=== PATIENT | male | born 1970 | race Caucasian/White ===

== ENCOUNTER 2019-08-30 14:22 | Inpatient (IN) | payer OTHER ==
[~2019-08-30] VITALS: Ht 188 cm; Wt 81.1 kg
--- NOTE | 2019-08-30 14:59 | NUR ---
INSPECTOR CHIEF: PT AMBULATORY WITH STEADY GAIT TO ROOM FROM LOBBY.
[2019-08-30 15:09] LABS: BASOPHILS # (AUTO) 0.08 x10^3/uL (0-0.1); BASOPHILS % (AUTO) 1 % (0-1); EOSINOPHILS # (AUTO) 0.27 x10^3/uL (0-0.4); EOSINOPHILS % (AUTO) 4 % (1-7); LYMPHOCYTES # (AUTO) 2.09 x10^3/uL (1-3.4); LYMPHOCYTES % (AUTO) 27 % (22-44); MD NO; MEAN CORPUSCULAR HGB CONC 33.9 g/dL (33.2-36.2); MEAN CORPUSCULAR VOLUME 88.5 fL (81-97); MONOCYTES # (AUTO) 0.41 x10^3/uL (0.2-0.8); MONOCYTES % (AUTO) 5 % (2-9); NEUTROPHILS # (AUTO) 4.77 x10^3/uL (1.8-6.8); NEUTROPHILS % (AUTO) 63 % (42-75); PLATELET COUNT 299 x10^3/uL (130-400); RED BLOOD COUNT 4.97 x10^6/uL (4.38-5.82); RED CELL DISTRIBUTION WIDTH 12.1 % (9.4-14.8)
[2019-08-30 15:18] LABS: ALBUMIN 3.6 g/dL (3.4-5.0); ANION GAP 7 mmol/L (5-15); CALCIUM 8.4 mg/dL (8.5-10.1); CHLORIDE 108 mmol/L (98-107)
--- NOTE | 2019-08-30 15:57 | NUR ---
3 ATTEMPTS TO CATH PT WITH SMALLER AND SMALLER CATHS EACH TIME WITHOUT SUCCESS. ERP AWARE AND UROLOGIST HAS BEEN CALLED.
[2019-08-30] MEDS ORDERED: SODIUM CHLORIDE FLUSH 10ML SYR IVF ONE (16:00)
[2019-08-30] MEDS ORDERED: ONDANSETRON 2MG/ML, 2ML IVPush ONE (16:00)
[2019-08-30] MEDS ORDERED: MORPHINE SULFATE 4 MG/ML, 1ML IVPush PRN (16:00)
[2019-08-30] MEDS ORDERED: ONDANSETRON 2MG/ML, 2ML ONE (16:08)
[2019-08-30] MEDS ORDERED: CEFTRIAXONE 250 MG ONE (16:08)
[2019-08-30] MEDS ORDERED: AZITHROMYCIN 500 MG TABLET ONE (16:08)
[2019-08-30] MEDS ORDERED: MORPHINE SULFATE 4 MG/ML, 1ML ONE (16:09)
--- NOTE | 2019-08-30 16:20 | NUR ---
UROLOGY AT BEDSIDE TO ASSESS PT
[2019-08-30] MEDS ORDERED: AZITHROMYCIN 500 MG TABLET PO ONE (16:30)
[2019-08-30] MEDS ORDERED: CEFTRIAXONE 250 MG IM ONE (16:30)
--- NOTE | 2019-08-30 16:35 | NUR ---
PT TO IR AT THIS TIME
--- NOTE | 2019-08-30 16:36 | NUR ---
ZITHROMAX TO BE GIVEN UPON PT RETURN FROM IR.
[2019-08-30] MEDS ORDERED: NALOXONE 1 MG/ML, 2ML ONE (16:38)
[2019-08-30] MEDS ORDERED: MIDAZOLAM 1 MG/ML, 5ML ONE (16:38)
[2019-08-30] MEDS ORDERED: FLUMAZENIL 0.1 MG/1 ML, 5ML ONE (16:38)
[2019-08-30] MEDS ORDERED: FENTANYL PF 100 MCG/2ML ONE ×2 (16:38)
[2019-08-30] MEDS ORDERED: VISIPAQUE 270 MG/ML, 50ML BOTTLE ONE (17:00)
--- NOTE | 2019-08-30 17:14 | NUR ---
REPORT FROM IR RN. PT TO RETURN TO ROOM SHORTLY. NO FOB FOUND. SUPRAPUBIC CATH PLACED.
--- NOTE | 2019-08-30 17:38 | NUR ---
PT BACK FROM IR, STILL RECOVERING FROM SEDATION, ABX TO BE GIVEN WHEN PT ABLE TO TAKE PO SAFELY
--- NOTE | 2019-08-30 18:07 | NUR ---
PT GIVEN ABX. PT IS A/O AND ABLE TO FOLLOW COMMANDS. PT REQUESTING "ALEXANDRA AND COKE AND FOOTBALL." PT SITTING UP CONVERSING WITH MOTHER CURRENTLY. VS CALL LIGHT IN REACH
[2019-08-30 18:25] LABS: MICROSCOPIC AUTO
[2019-08-30 18:27] LABS: CULTURE INDICATED? YES
[2019-08-30] MEDS ORDERED: morphine SULFATE 10 MG/ML, 1ML IVPush PRN (19:00)
[2019-08-30] MEDS ORDERED: ONDANSETRON 2MG/ML, 2ML IVPush PRN (19:00)
[2019-08-30] MEDS ORDERED: ACETAMINOPHEN 325 MG TABLET PO PRN (19:00)
[2019-08-30] MEDS ORDERED: HYDROcodone/APAP 5/325 TABLET ONE (19:10)
[2019-08-30] MEDS: HYDROcodone/APAP 5/325 TABLET PO PRN (19:13)
--- NOTE | 2019-08-30 19:13 | NUR ---
PT REPORTING 7/10 PAIN. PT MEDICATED PER MAR
--- NOTE | 2019-08-30 19:25 | NUR ---
report called to floor rn all questions addressed
[2019-08-30 21:10] VITALS: BP 133/82
[2019-08-31 01:09] VITALS: BP 119/66
[2019-08-31] MEDS: HYDROcodone/APAP 5/325 TABLET PO PRN ×3 (01:17→21:17)
[2019-08-31 05:30] LABS: BASOPHILS # (AUTO) 0.05 x10^3/uL (0-0.1); BASOPHILS % (AUTO) 0 % (0-1); EOSINOPHILS # (AUTO) 0.21 x10^3/uL (0-0.4); EOSINOPHILS % (AUTO) 1 % (1-7); LYMPHOCYTES # (AUTO) 1.52 x10^3/uL (1-3.4); LYMPHOCYTES % (AUTO) 10 % (22-44); MD NO; MEAN CORPUSCULAR HEMOGLOBIN 30.1 pg (27.5-34.5); MEAN CORPUSCULAR HGB CONC 33.4 g/dL (33.2-36.2); MEAN CORPUSCULAR VOLUME 90.2 fL (81-97); MEAN PLATELET VOLUME 7.5 fL (7.4-10.4); MONOCYTES # (AUTO) 0.91 x10^3/uL (0.2-0.8); MONOCYTES % (AUTO) 6 % (2-9); NEUTROPHILS # (AUTO) 12.42 x10^3/uL (1.8-6.8); NEUTROPHILS % (AUTO) 82 % (42-75); PLATELET COUNT 273 x10^3/uL (130-400); RED BLOOD COUNT 4.99 x10^6/uL (4.38-5.82); RED CELL DISTRIBUTION WIDTH 12.6 % (9.4-14.8)
[2019-08-31 05:37] LABS: ANION GAP 5 mmol/L (5-15); CALCIUM 8.7 mg/dL (8.5-10.1); CHLORIDE 105 mmol/L (98-107); CREATININE 0.87 mg/dL (0.7-1.3)
[2019-08-31 07:16] VITALS: BP 107/61
[2019-08-31] MEDS: CEFTRIAXONE PMX 1GM/50ML 50 ML IV SCH (10:04)
[2019-08-31 13:08] VITALS: BP 114/66
[2019-08-31] MEDS ORDERED: OMNIPAQUE 350 MG/ML, 100ML BOTTLE ONE (15:32)
[2019-08-31 19:24] VITALS: BP 126/71
[2019-09-01 02:14] VITALS: BP 104/63
[2019-09-01 07:49] VITALS: BP 107/68
[2019-09-01] MEDS: CEFTRIAXONE PMX 1GM/50ML 50 ML IV SCH (08:22)
[2019-09-01 11:08] LABS: MEAN CORPUSCULAR HEMOGLOBIN 30.3 pg (27.5-34.5); MEAN CORPUSCULAR HGB CONC 33.9 g/dL (33.2-36.2); MEAN CORPUSCULAR VOLUME 89.5 fL (81-97); MEAN PLATELET VOLUME 6.9 fL (7.4-10.4); PLATELET COUNT 270 x10^3/uL (130-400); RED BLOOD COUNT 4.85 x10^6/uL (4.38-5.82); RED CELL DISTRIBUTION WIDTH 12.6 % (9.4-14.8)
[2019-09-01 11:12] LABS: CHLORIDE 105 mmol/L (98-107)
[2019-09-01 11:20] LABS: ALANINE AMINOTRANSFERASE 21 U/L (12-78); ALBUMIN 3.2 g/dL (3.4-5.0); ALKALINE PHOSPHATASE 73 U/L (45-117); ANION GAP 5 mmol/L (5-15); BILIRUBIN,TOTAL 0.3 mg/dL (0.2-1.0); CALCIUM 8.7 mg/dL (8.5-10.1); CREATININE 0.81 mg/dL (0.7-1.3); TOTAL PROTEIN 6.6 g/dL (6.4-8.2)
[2019-09-01 11:57] LABS: BASOPHILS # (AUTO) 0.04 x10^3/uL (0-0.1); BASOPHILS % (AUTO) 1 % (0-1); EOSINOPHILS # (AUTO) 0.15 x10^3/uL (0-0.4); EOSINOPHILS % (AUTO) 2 % (1-7); LYMPHOCYTES # (AUTO) 1.54 x10^3/uL (1-3.4); LYMPHOCYTES % (AUTO) 24 % (22-44); MD SCAN; MONOCYTES # (AUTO) 0.61 x10^3/uL (0.2-0.8); MONOCYTES % (AUTO) 9 % (2-9); NEUTROPHILS # (AUTO) 4.18 x10^3/uL (1.8-6.8); NEUTROPHILS % (AUTO) 64 % (42-75)
[2019-09-01] MEDS: HYDROcodone/APAP 5/325 TABLET PO PRN ×2 (12:20→17:50)
[2019-09-01 14:51] VITALS: BP 109/65
[2019-09-01 19:28] VITALS: BP 110/66
[2019-09-02 01:00] VITALS: BP 112/69
[2019-09-02 06:04] LABS: BASOPHILS # (AUTO) 0.05 x10^3/uL (0-0.1); BASOPHILS % (AUTO) 1 % (0-1); EOSINOPHILS # (AUTO) 0.22 x10^3/uL (0-0.4); EOSINOPHILS % (AUTO) 4 % (1-7); LYMPHOCYTES # (AUTO) 1.49 x10^3/uL (1-3.4); LYMPHOCYTES % (AUTO) 30 % (22-44); MD NO; MEAN CORPUSCULAR HEMOGLOBIN 30.3 pg (27.5-34.5); MEAN CORPUSCULAR HGB CONC 34.1 g/dL (33.2-36.2); MEAN CORPUSCULAR VOLUME 88.9 fL (81-97); MEAN PLATELET VOLUME 6.7 fL (7.4-10.4); MONOCYTES # (AUTO) 0.51 x10^3/uL (0.2-0.8); MONOCYTES % (AUTO) 10 % (2-9); NEUTROPHILS # (AUTO) 2.78 x10^3/uL (1.8-6.8); NEUTROPHILS % (AUTO) 55 % (42-75); PLATELET COUNT 269 x10^3/uL (130-400); RED BLOOD COUNT 4.85 x10^6/uL (4.38-5.82); RED CELL DISTRIBUTION WIDTH 12.4 % (9.4-14.8)
[2019-09-02 06:17] LABS: CHLORIDE 104 mmol/L (98-107)
[2019-09-02 06:29] LABS: ANION GAP 6 mmol/L (5-15); CALCIUM 8.5 mg/dL (8.5-10.1); CREATININE 0.94 mg/dL (0.7-1.3)
[2019-09-02 07:25] VITALS: BP 112/70
[2019-09-02] MEDS ORDERED: AMPICILLIN/SULBACTAM 3 GM in SODIUM CHLORIDE 0.9% 100 ML IV SCH (08:00)
== END 2019-09-02 10:48 | disposition left against medical advice (07) | DRG 872 ==
LOC: ED 18:49 → 3N 18:54 → ED 19:32
PROVIDERS: ADMIT Internal Medicine; ATTEND Hospitalist
PROC: 0T9B70Z Drainage of Bladder with Drainage Device, Via Natural or Artificial Opening (ICD-10-PCS; principal; 2019-08-30)
DX: A41.9 Sepsis, unspecified organism (principal); N12 Tubulo-interstitial nephritis, not specified as acute or chronic; R65.20 Severe sepsis without septic shock; B95.2 Enterococcus as the cause of diseases classified elsewhere; F17.200 Nicotine dependence, unspecified, uncomplicated; N48.5 Ulcer of penis; Z53.29 Procedure and treatment not carried out because of patient's decision for other reasons
CPT/HCPCS: 36415; 51102; 51702; 72190; 72193; 75989; 76942; 80048; 80053; 81001; 82040; 85025; 86694; 86695; 86696; 87040; 87070; 87077; 87086; 87205; 87389; 87491; 87529; 87591; 99156; 99157; C1725; G0378; J0295; J0696; J2250; J2405; J3010; Q9966; Q9967; C1769; J2310

== ENCOUNTER 2019-10-12 17:36 | Emergency (ER) | payer OTHER ==
[~2019-10-12] VITALS: Ht 188 cm; Wt 97.2 kg
--- NOTE | 2019-10-12 17:55 | NUR ---
PT GOT A SUPRAPUBIC CATHETER PLACED BEFORE AND EARLIER TODAY URINE STARTED TO COME OUT OF THE PENIS AND NOT INTO THE CATHETER. STATES ITS UNCOMFORTABLE WHEN THE URINE COMES OUT OF OF THE PENIS. DENIES TRAUMA. CALL LIGHT WITHIN REACH
--- NOTE | 2019-10-12 19:40 | NUR ---
lizy rn: bladder scan done, showing 15ml in bladder, leg bag draining yellow urine. pt has no other needs.
[2019-10-12 19:41] VITALS: BP 131/83
--- NOTE | 2019-10-12 20:06 | NUR ---
REVIEWED DISCHARGE INSTRUCTIONS W/ PT, VERBALIZED UNDERSTANDING TO INFORMATION PROVIDED INCLUDING FOLLOW UP CARE, RETURN PRECAUTIONS AND CATHETER CARE, DENIED QUESTIONS/CONCERNS. PT AMBULATED FROM ED.
== END 2019-10-12 20:08 ==
LOC: ED 19:15
DX: R33.9 Retention of urine, unspecified (principal); F17.200 Nicotine dependence, unspecified, uncomplicated
CPT/HCPCS: 99284

== ENCOUNTER 2019-10-17 06:39 | Emergency (ER) | payer SELFPAY ==
[~2019-10-17] VITALS: Ht 188 cm; Wt 78.4 kg
--- NOTE | 2019-10-17 07:12 | NUR ---
PATIENT BROUGHT BACK FROM TRIAGE FOR SUPRAPUBLIC CATH IRRIGATION. CATH PLACED HERE IN AUG. NOW PATIENT STATES IT IS "CLOGGED" NO OTHER SYMPTOMS REPORTED.
--- NOTE | 2019-10-17 07:47 | NUR ---
HANH CULP AWARE INABILITY TO IRRIGATE CATH.
--- NOTE | 2019-10-17 08:46 | NUR ---
HANH CULP UNABLE TO REPLACE CATH- IR TO EVALUATE
--- NOTE | 2019-10-17 09:33 | NUR ---
PT AWARE OF POC, PT RESTING IN BED.
--- NOTE | 2019-10-17 10:48 | NUR ---
PT RESTING IN BED, CALL LIGHT IN REACH
[2019-10-17] MEDS ORDERED: FENTANYL PF 100 MCG/2ML ONE (10:50)
[2019-10-17] MEDS ORDERED: MIDAZOLAM 1 MG/ML, 5ML ONE (10:50)
[2019-10-17] MEDS ORDERED: NALOXONE 1 MG/ML, 2ML ONE (10:51)
[2019-10-17] MEDS ORDERED: FLUMAZENIL 0.1 MG/1 ML, 5ML ONE (10:51)
[2019-10-17] MEDS ORDERED: LIDOCAINE 1%, 10ML ONE (10:58)
--- NOTE | 2019-10-17 11:00 | NUR ---
PT TO IR
--- NOTE | 2019-10-17 11:48 | NUR ---
REPORT RECIEVED FROM HANH RAMESH UPDATED.
--- NOTE | 2019-10-17 12:16 | NUR ---
pt resting in bed, new cath in place.
[2019-10-17 12:24] LABS: MICROSCOPIC AUTO
[2019-10-17 12:25] LABS: CULTURE INDICATED? YES
--- NOTE | 2019-10-17 13:22 | NUR ---
RIDE AT BEDSIDE, DISCHARGE INSTRUCTIONS REVIEWED
[2019-10-17 13:27] VITALS: BP 133/87
== END 2019-10-17 13:30 | disposition home or self-care (01) ==
LOC: ED 07:37
DX: N30.01 Acute cystitis with hematuria (principal); R33.9 Retention of urine, unspecified; F17.200 Nicotine dependence, unspecified, uncomplicated
CPT/HCPCS: 75984; 81001; 87077; 87086; 87186; 99156; 99157; 99285; C1769; J2250; J3010; J3490; J2310

== ENCOUNTER 2019-10-17 19:16 | Emergency (ER) | payer SELFPAY ==
[~2019-10-17] VITALS: Ht 188 cm; Wt 78.5 kg
--- NOTE | 2019-10-17 19:39 | NUR ---
PT C/O SUPRAPUBIC CATHETER DISPLACEMENT TODAY. PT DENIES PAIN AT SITE, NO DRAINAGE, REDNESS, OR SWELING AT SITE. REPORTS CATHETER WAS PLACED EARLIER TODAY. PT REPORTS HE HAD ANOTHER SUPRAPUBIC CATHETER PLACED AROUND THANKSGIVING THAT WAS REMOVED DUE TO BEING CLOGGED. PT DENIES ANY OTHER C/O AT THIS TIME. PT CONNECTED TO MONITORING, CALL LIGHT WITHIN REACH, ALL SAFETY MEASURES IN PLACE.
--- NOTE | 2019-10-17 19:43 | NUR ---
PT REPORTS FEELING THE URGE TO URINATE AT THIS TIME
--- NOTE | 2019-10-17 20:01 | NUR ---
PT CAME IN TO ED WITH IV IN PLACE IN RIGHT FOREARM. IV REMOVED BY THIS RN. SITE ASYMPTOMATIC. DRESSING APPLIED. PT HAS IV FROM SUPRAPUBIC CATHETER PLACEMENT BY IR EARLIER TODAY. PT REPORTS HE DIDNT REALISE HE WAS SENT HOME WITH IT.
--- NOTE | 2019-10-17 20:04 | NUR ---
ERP IN ROOM TO PLACE SUPRAPUBIC CATHETER. PT TOLERATED AND UPDATED ON POC.
[2019-10-17] MEDS ORDERED: HYDROmorphone 1 MG/ML, 1ML INJ ONE (20:13)
--- NOTE | 2019-10-17 20:38 | NUR ---
PT TO IMAGING AT THIS TIME.
--- NOTE | 2019-10-17 20:41 | NUR ---
TIP INTACT AT IV REMOVAL.
[2019-10-17] MEDS ORDERED: OMNIPAQUE 350 MG/ML, 50 ML BOTTLE ONE (20:49)
[2019-10-17 21:15] VITALS: BP 126/83
== END 2019-10-17 21:17 | disposition home or self-care (01) ==
LOC: ED 19:35
DX: T83.028A Displacement of other urinary catheter, initial encounter (principal); F17.200 Nicotine dependence, unspecified, uncomplicated; Z72.89 Other problems related to lifestyle
CPT/HCPCS: 51705; 72170; 99284; Q9967